=== PATIENT | male | born 1935 | race Caucasian/White ===

== ENCOUNTER 2022-02-06 13:20 | Emergency (ER) | payer OTHER ==
[2022-02-06 13:36] VITALS: PULSE 87; BMI 26.2
[2022-02-06] MEDS ORDERED: ACETAMINOPHEN 1000 MG/100 ML BAG IVPB ONE (15:29)
[2022-02-06 15:50] LABS: EOS % 3.4 % (0-4.5); HEMATOCRIT 42.5 % (35.4-49); HEMOGLOBIN 14.4 GM/dL (11.7-16.9); LYMPH % 21.1 % (8-40); MCH 29.7 pg (25.7-33.7); MEAN CELL VOLUME 87.3 fl (80-96); MONO % 9.4 % (3.8-10.2); NEUT % 65.1 % (42.8-82.8); PLATELET COUNT 358 10^3/uL (134-434); RBC 4.86 M/mm3 (4.00-5.60); RDW 14.5 % (11.9-15.9)
[2022-02-06 15:55] VITALS: BP 139/72; TEMP 97.5
[2022-02-06 16:10] LABS: BLOOD UREA NITROGEN 15.4 mg/dL (7-18); CALCIUM 9.5 mg/dL (8.5-10.1)
[2022-02-06 16:11] LABS: ALBUMIN 4.1 g/dl (3.4-5.0)
[2022-02-06 16:13] LABS: CREATININE 1.6 mg/dL (0.55-1.3); URIC ACID 8.4 mg/dL (2.6-7.2)
[2022-02-06 16:15] LABS: BILIRUBIN,TOTAL 0.4 mg/dL (0.2-1); TOT PROT 8.6 g/dl (6.4-8.2)
[2022-02-06 16:18] LABS: N-TERMINAL BNP 82.6 pg/ml (5-450)
[2022-02-06] MEDS ORDERED: INDOMETHACIN 50 MG CAPSULE PO ONE (16:59)
== END 2022-02-06 19:03 | disposition home or self-care (01) ==
LOC: JER 13:20
PROC: 3E033NZ Introduction of Analgesics, Hypnotics, Sedatives into Peripheral Vein, Percutaneous Approach (ICD-10-PCS; principal; 2022-02-06)
DX: M79.672 Pain in left foot (principal); M10.9 Gout, unspecified
CPT/HCPCS: 0241U-QW; 36415; 71045-TC-FY; 73562-TC-RT-FY; 73610-TC-LT-FY; 73630-TC-LT; 80053; 83880; 84550; 85025; 93005; 93010; 96374; 99284-25

== ENCOUNTER 2022-02-26 16:09 | Emergency (ER) | payer OTHER ==
[2022-02-26 16:34] VITALS: BP 132/53; PULSE 91; TEMP 97.4; BMI 24.2
[2022-02-26] MEDS ORDERED: SODIUM CHLORIDE 0.9% 500 ML INFUS.BAG IV ONE (19:15)
[2022-02-26 19:22] LABS: BASO % 0.1 % (0-2.0); EOS % 0.1 % (0-4.5); HEMATOCRIT 43.7 % (35.4-49); HEMOGLOBIN 14.5 GM/dL (11.7-16.9); LYMPH % 1.9 % (8-40); MCH 28.9 pg (25.7-33.7); MCHC 33.1 g/dl (32.0-35.9); MEAN CELL VOLUME 87.1 fl (80-96); MONO % 2.4 % (3.8-10.2); NEUT % 95.5 % (42.8-82.8); PLATELET COUNT 272 10^3/uL (134-434); RBC 5.02 M/mm3 (4.00-5.60); RDW 14.3 % (11.9-15.9); WHITE BLOOD COUNT 21.4 K/mm3 (4.0-10.0)
[2022-02-26 19:48] LABS: ALBUMIN 4.1 g/dl (3.4-5.0); BLOOD UREA NITROGEN 23.2 mg/dL (7-18)
[2022-02-26 19:51] LABS: CREATININE 1.8 mg/dL (0.55-1.3)
[2022-02-26 19:52] LABS: BILIRUBIN,TOTAL 0.6 mg/dL (0.2-1); TOT PROT 8.4 g/dl (6.4-8.2)
[2022-02-26 20:11] LABS: ANISOCYTOSIS 0; MACROCYTOSIS 0
[2022-02-26 20:29] LABS: PH,URINE 5.5 (5.0-8.0); URINE APPEARANCE CLEAR; URINE BILIRUBIN NEGATIVE (NEGATIVE); URINE COLOR YELLOW; URINE GLUCOSE (UA) NEGATIVE (NEGATIVE); URINE KETONE NEGATIVE (NEGATIVE); URINE LEUK ESTERASE NEGATIVE (NEGATIVE); URINE NITRITE NEGATIVE (NEGATIVE); URINE PROTEIN NEGATIVE (NEGATIVE); URINE UROBILINOGEN 0.2 mg/dL (0.2-1.0)
== END 2022-02-27 00:10 | disposition home or self-care (01) ==
LOC: JER 16:09
DX: K57.92 Diverticulitis of intestine, part unspecified, without perforation or abscess without bleeding (principal)
CPT/HCPCS: 36415; 74176-TC; 80053; 81003; 85025; 87086; 99284-25

== ENCOUNTER 2022-11-17 12:02 | Emergency (ER) | payer OTHER ==
[2022-11-17 12:26] VITALS: BP 149/63; PULSE 104; RESP 18; TEMP 98.5; BMI 26.5
[2022-11-17] MEDS ORDERED: ACETAMINOPHEN 1000 MG/100 ML BAG IVPB ONE (13:33)
[2022-11-17] MEDS ORDERED: ACETAMINOPHEN INJECTION 100 ML IVPB ONE (13:38)
[2022-11-17 14:38] LABS: BASO % 0.9 % (0-2.0); EOS % 1.2 % (0-4.5); HEMATOCRIT 39.5 % (35.4-49); HEMOGLOBIN 13.8 GM/dL (11.7-16.9); LYMPH % 16.7 % (8-40); MCH 30.4 pg (25.7-33.7); MCHC 34.9 g/dl (32.0-35.9); MEAN CELL VOLUME 87.2 fl (80-96); MEAN PLT VOLUME 8.7 fl (7.5-11.1); MONO % 9.2 % (3.8-10.2); PLATELET COUNT 276 10^3/uL (134-434); RBC 4.53 M/mm3 (4.00-5.60); WHITE BLOOD COUNT 9.6 K/mm3 (4.0-10.0)
[2022-11-17 15:22] LABS: ERYTHROCYTE SEDIMENTATION RATE 38 mm/hr (0-20)
[2022-11-17] MEDS ORDERED: SULFAMETHOXAZOLE/TRIMETHOPRIM 800MG/160MG D.S. TABLET PO ONE (15:24)
[2022-11-17 15:25] LABS: CALCIUM 9.4 mg/dL (8.5-10.1)
[2022-11-17 15:26] LABS: ALBUMIN 3.9 g/dl (3.4-5.0); BLOOD UREA NITROGEN 16.3 mg/dL (7-18)
[2022-11-17 15:28] LABS: URIC ACID 8.7 mg/dL (2.6-7.2)
[2022-11-17 15:29] LABS: CREATININE 1.6 mg/dL (0.55-1.3)
[2022-11-17 15:30] LABS: BILIRUBIN,TOTAL 0.5 mg/dL (0.2-1)
[2022-11-17 15:31] LABS: TOT PROT 8.4 g/dl (6.4-8.2)
[2022-11-17] MEDS ORDERED: SULFAMETHOXAZOLE/TRIMETHOPRIM 800MG/160MG D.S. TABLET ONE (15:59)
== END 2022-11-17 16:22 | disposition home or self-care (01) ==
LOC: JER 12:02
PROC: 3E033NZ Introduction of Analgesics, Hypnotics, Sedatives into Peripheral Vein, Percutaneous Approach (ICD-10-PCS; principal; 2022-11-17)
DX: L03.115 Cellulitis of right lower limb (principal); M25.571 Pain in right ankle and joints of right foot; R21 Rash and other nonspecific skin eruption; R22.41 Localized swelling, mass and lump, right lower limb; R20.9 Unspecified disturbances of skin sensation; Z20.822 Contact with and (suspected) exposure to COVID-19
CPT/HCPCS: 0241U-QW; 36415; 73610-TC-RT-FY; 73630-TC-RT-FY; 80053; 82962; 84550; 85025; 85651; 86140; 96374; 99284-25